=== PATIENT | male | born 1950 | race Caucasian/White ===

== ENCOUNTER → 2018-06-08 23:02 | Outpatient (CLI) | payer OTHER, MEDICARE, SELFPAY ==
[2018-06-08 19:31] VITALS: BMI 35.3
[2018-06-08 23:23] LABS: Absolute Lymphocyte Count 1.57 X10^3/ul (0.83-4.51); Absolute Neutrophil Count 3.8 X10^3/uL (2.0-7.7); Basophil# 0.04 X10^3/uL; Basophil% 0.6 % (0-1); Eosinophil# 0.24 X10^3/uL; Eosinophils% 3.9 % (0-5); Hematocrit 46.6 % (40-54); Hemoglobin 15.5 g/dl (13.0-16.5); Lymphocyte # 1.57 X10^3/ul (4.0); Lymphocyte % 25.4 % (19-41); Mean Corp Hgb Conc 33.3 g/gl (32-36); Mean Corpuscular Hgb 30.6 pg (27.0-32.0); Mean Corpuscular Volume 92.1 fL (80-94); Mean Platelet Vol. 11.3 fl (6.2-12.0); Monocyte# 0.52 X10^3/uL; Monocyte% 8.4 % (0-10); Neutrophil # 3.79 X10^3/uL (2.7-7.7); Neutrophil % 61.5 % (47-70); Platelet Count 258 K/mm3 (150-450); RBC Distribution Width CV 12.3 % (11.6-14.6); Red Blood Count 5.06 M/mm3 (4.6-6.2); White Blood Count 6.2 K/mm3 (4.4-11.0)
[2018-06-08 23:27] LABS: ALB/GLOB Ratio 1.3 RATIO (0.9-2.4); AST(SGOT) 21 U/L (15-37); Alanine Aminotransfer ALT/SGPT 32 U/L (16-61); Alkaline Phosphatase 105 U/L (45-117); Anion Gap 7 (5-15); BUN 16 mg/dL (7-18); BUN/Creat Ratio 12.4 RATIO (10-20); Calcium,Total 8.9 mg/dL (8.5-10.1); Chloride 104 mmol/L (98-107); Cholesterol 164 mg/dL (200); Creatinine, Serum 1.29 mg/dL (0.70-1.30); EST Glomerular Filtration Rate 59 mL/min (>60); Est Glom Filt Rate - Afr Amer 72 mL/min (>60); Glucose 82 mg/dL (74-106); High Density Lipoprotein 46 mg/dL; PSA,Total - Annual Screen 0.59 ng/mL (0.00-4.00); Potassium 3.9 mmol/L (3.5-5.1); Sodium Level 139 mmol/L (136-145); Triglycerides 138 mg/dL; Very Low Density Lipoprotein 28 mg/dL (5-40)
[2018-06-08 23:33] LABS: POSITIVE COUNT NO; POSITIVE DIFFERENTIAL NO; POSITIVE MORPHOLOGY NO
== END ==
PROVIDERS: Referring Provider Nurse Practitioner; Visit Provider Nurse Practitioner
DX: I10 Essential (primary) hypertension (principal); E78.5 Hyperlipidemia, unspecified; R35.0 Frequency of micturition
CPT/HCPCS: 80053; 80061; 84153; 85025; G0103

== ENCOUNTER 2019-02-27 12:58 | Inpatient (IN) | payer OTHER, MEDICARE, SELFPAY ==
[2018-06-08 19:31] VITALS: BMI 35.3
[2019-02-08 15:08] VITALS: BP 117/69; PULSE 76; RESP 16; TEMP 36.4; O2SAT 97; BMI 34.2
--- NOTE | 2019-02-08 15:21 | SDCEKG_ITS ---
Test Reason : Blood Pressure : / mmHG Vent. Rate : 079 BPM Atrial Rate : 079 BPM P-R Int : 262 ms QRS Dur : 080 ms QT Int : 358 ms P-R-T Axes : 060 089 042 degrees QTc Int : 410 ms Sinus rhythm with 1st degree A-V block with occasional Premature ventricular complexes Low voltage QRS Borderline ECG Confirmed by ESTELLA ADLER, RANDY ([id number]), loan expeditor MARIETTA NEIL ([id number]) on 02/13/2019 9:40:06 AM Referred By: Hudson Stanton Confirmed By:RANDY SORIA MD
[2019-02-08 16:00] LABS: AST(SGOT) 20 U/L (15-37); Alanine Aminotransfer ALT/SGPT 29 U/L (16-61); Alkaline Phosphatase 80 U/L (45-117); Anion Gap 8 (5-15); BUN 22 mg/dL (7-18); BUN/Creat Ratio 15.7 RATIO (10-20); Bilirubin, Direct 0.17 mg/dL (0.00-0.30); Calcium,Total 9.2 mg/dL (8.5-10.1); Chloride 104 mmol/L (98-107); EST Glomerular Filtration Rate 54 mL/min (>60); Est Glom Filt Rate - Afr Amer 65 mL/min (>60); Estimated Creatinine Clearance 57.86 ml/min; Globulin 3.1 g/dL (2.2-4.2); Glucose 97 mg/dL (74-106); Hematocrit 47.7 % (40-54); Mean Corp Hgb Conc 33.5 g/dL (32-36); Mean Corpuscular Hgb 30.5 pg (27.0-32.0); Platelet Count 292 K/mm3 (150-450); Potassium 4.1 mmol/L (3.5-5.1); Protein, Total 7.1 g/dL (6.4-8.2); RBC Distribution Width CV 11.9 % (11.6-14.6); RBC Distribution Width SD 39.6 fl (35.1-43.9); Red Blood Count 5.24 M/mm3 (4.6-6.2); Sodium Level 138 mmol/L (136-145); White Blood Count 7.5 K/mm3 (4.4-11.0)
[2019-02-27] VITALS (12 sets, daily range): BP systolic 92–127; BP diastolic 67–84; PULSE 73–86; RESP 16–18; TEMP 35.8–36.8; O2SAT 96–100; BMI 34.2; BMI 34.3
[2019-02-27 13:31] LABS: Bedside Glucose 98 mg/dL (70-110)
[2019-02-27] MEDS: Acetaminophen 500 MG Tablet 1000 MG PO ×2 (13:41→22:05)
[2019-02-27] MEDS: Scopolamine 1mg/72hr Patch 1 PATCH TRANSDERM. (13:42)
[2019-02-27] MEDS: Gabapentin 600 MG Tablet PO (13:43)
[2019-02-27] MEDS: Magnesium Sulfate 4gm/100mL 4 GM/100 ML IV.SOLN. IV (13:43)
[2019-02-27] MEDS: Lactated Ringers 1,000 ML 999 ML IV (13:45)
[2019-02-27] MEDS: Cefazolin 2 GM in 0.9% Normal Saline 100 ML IV (14:13)
[2019-02-27] MEDS: Lactated Ringers 1,000 ML 125 ML IV (14:20)
--- NOTE | 2019-02-27 15:00 | HIP_PTH ---
PATIENT: PK BURTON LOC: [facility]3 U#:[id number] AGE/SX: 68/M ROOM: MS313 RE02/27/[address]: Dr. Hudson Stanton MD : 1950 BED: 1 DIS: 02/28/2019 SPEC #: [id number] RECD: 02/28/19 11:51 STATUS: TOSHIA REQ #: [id number] CARROL: 02/27/19 15:[address]: Hudson Stanton DEPT: SURGICAL PATHOLOGY RECD BY: Sg Hilario ENTERED: 02/28/19 12:26 SP TYPE: TOTAL HIP OTHR DR: No Primary Care Phys Tissues: Hip, NOS Procedures: Decalcification bone/plaque Surgery Specimen Level IV HEADER OPERATION: ERAS, total hip replacement PRE-OP DIAGNOSIS: Unilateral primary osteoarthritis left hip TISSUE SUBMITTED: Left hip bone MICROSCOPIC DIAGNOSIS Left hip bone, total hip replacement/resection: Femoral head with degenerative osteoarthritic changes. Fragments of fibroadipose tissue, fibroconnective tissue and reactive synovial tissue. FREDDIE:shola 03/03/19 MICROSCOPIC DESCRIPTION Slides are reviewed. GROSS DESCRIPTION Received is one container labeled with the patient's name and designated bone and soft tissue hip, left. The specimen consists of a wen femoral head with portion of femoral neck. The femoral head measures 5.5 x 5.5 x 4.5 cm and the femoral neck measures 1 cm in length. The articular surface displays prominent osteophyte formation and bone erosion. Also present in the specimen container are multiple irregular fragments of bone reamings and pink-yellow soft tissue measuring in aggregate 10 x 9 x 3.5 cm. Timing Machine Operator sections are submitted in three cassettes as follows: 1 - soft tissue, 2 & 3 - bone after decalcification. / FREDDIE:shola 02/28/19 TC:5 CPT: 70786, 41261
--- NOTE | 2019-02-27 16:02 | PRO.PCM_ITS ---
Procedure Report Preoperative diagnosis: Left hip primary osteoarthritis Postoperative diagnosis: Same Operation: Left total hip replacement surgery Surgeon: Dr. Hudson Stanton MD Stave Log Cut Off Saw Operator: Elvi Ley PA-C Second licensed sales assistant Yo HODGES Anesthesia: Spinal Anesthesiologist Dr. Angela Special medications: IV [Ancef 2 gm], IV Tranexamic acid Indications for surgery : Patient is a [ 68]-year-old [male] with a long- standing history of [left] severe hip pain that has failed adequate nonoperative treatment. Due to persistent pain and disability, they decided to proceed with hip replacement surgery. Appropriate informed consent was obtained and signed. Appropriate medical workup was performed preoperatively and patient was deemed safe for surgery by the anesthesia department as well. assistant sales director, physician licensed sales assistant, was utilized throughout the entire procedure. They were vital in helping with patient positioning, holding of retractors, exposing the tissues adequately for safe completion of the procedure including cutting of the bone, helping district associate judge appropriate alignment and sizing of the components, implantation of the components, as well as wound closure, bandage application, and safe patient transfer. Without surgical scrub technician, physician licensed sales assistant, surgical time would have been significantly increased, and surgical outcome would have been less optimal. Operative findings: Patient had severe arthritis of the involved hip joint. They underwent a small posterior approach to the hip. We utilized a size [6 press-fit Accolade 2 stem] 127 degree neck angle, a press fit acetabular component size [58] Trident II titanium, X3 10? hooded polyethylene liner with a 36 mm inner diameter, a Biolox ceramic femoral head size [36] with a +7.5 neck length. This reproduced their anatomy nicely. Clinically good leg lengths were noted. Good hip stability through range of motion with no undue piston ing. Standard wound closure in layers, followed by becky, followed by Mepilex dressing Details of procedure: Patient was taken to the operating room and transferred to the operating table. Given appropriate anesthetic agent by that department. Patient was then rolled into a lateral decubitus position with the involved painful hip up in the air. Appropriate timeouts had been performed. Hip had been appropriately marked with my initials. Padded anterior and posterior position was utilized. Axillary roll placed. DAMION hose and SCDs on the nonoperative limb utilized throughout the procedure. Tranexamic acid and IV antibiotics given preoperatively. Operative lower extremity was prepped padded and draped in the usual orthopedic sterile fashion for the procedure. I injected the pain relieving solution in the standard sterile technique of the soft tissues of the hip carefully. Incision was made curving over the tip of the greater trochanter posteriorly. Full thickness skin flaps are raised down on the fascia merry. Fascia mrery was opened in length with our incision. Charnley self-retaining hip retractor was carefully placed by the surgeon. Leg was appropriately rotated and held by the licensed sales assistant. Retractor was used to lift the abductors anteriorly to visualize the piriformis tendon and external rotators. Area was infiltrated with pain relieving cocktail. Piriformis tendon and external rotators released off the greater trochanter with the Bovie. Tagging suture was placed in each of these separately. We then split the tissue superior to the piriformis tendon through capsule and onto the pelvis. Acetabular labrum was also divided. With traction and manipulation arthritic femoral head was dislocated from the acetabulum. Retractors were carefully placed around the femoral neck. Cutting guide was utilized to map out the proposed cut approximately 1 fingerbreadth above the lesser trochanter. This femoral neck cut was carried out with a saw. Arthritic femoral head removed and measured and inspected. Inferior acetabular retractor was placed by the surgeon, held by the licensed sales assistant. Bone hook utilized to pull the proximal femur anteriorly. Labrum removed from about the acetabulum a long knife. Tissue removed from the depth of the acetabulum with the Bovie. Arthritic acetabulum was noted. We began reaming with the appropriate sized reamer based on the measurement of the femoral head. Reaming was done with 45? of abduction, 20? of anteversion, reproducing there anatomy. Reaming was done incrementally up to the appropriate size creating a smooth cylindrical acetabulum and was done down to healthy bone. Trial acetabular component 1 millimeters smaller than the largest reamer was utilized with the outrigger device. Appropriate abduction an d anteversion confirmed as well as size and position of cup. We irrigated with bulb syringe saline. Appropriate acetabular opponent was opened and hammered into position with the outrigger device, with 45? of abduction and 20 degrees of anteversion. We could see through the hole in the cup it was adequately down onto the bone in the pelvis. Good stability was noted. Trial liner with a 10? prasad was appropriately positioned. Acetabular retractors removed. A proximal femoral elevator utilized. Held by the licensed sales assistant. We used a sharp awl entering down inside the bone of the proximal femur. Utilized the rachana cutting osteotome in the proximal lateral greater trochanteric region. The fragment removed. Broaching was then done from the smallest broach, upto the appropriate size. Good stability was confirmed. We then trialed the construct with a standard neck length and appropriate sized femoral head on 127? angle neck. We were happy with the construct. Good stability to flexion, rotation by the licensed sales assistant. At this point trials removed. I now placed the appropriate polyethylene acetabular liner into a clean dry previously placed shell. This was hammered into position. Suction device was used to confirm its stability. We now exposed the proximal femur with appropriate retractors in place, held by the licensed sales assistant, actual femoral stem was checked, opened, and then hammered into the proximal femur and seated down to a similar position as the trial had. We now again trialed appropriate neck length upon. It was then opened. Now impacted the appropriate sized femoral head, neck construct onto the clean dried trunion. Was noted to be stable. Hip was inspected, and joint was reduced for a final time. Good hip stability and leg lengths noted. This was then irrigated with saline and cleaned. Next the remainder of the pain relieving solution was injected carefully throughout the soft tissues of the hip joint. Closure was carried out with a combination of #1 Vicryl, running #2 strata fix in the fascia merry, followed by mid layer #1 Vicryl with #1 strata fix running. Next running 0 strata fix, followed by skin becky, Xeroform, Mepilex dressing. We placed DAMION hose and SCD on the operative leg. Patient awoken from the anesthetic and transferred back to room bed in recovery room in satisfactory condition. Patient will be admitted for pain management, PT, IV antibiotics, medication and for DVT prevention. Hopeful discharge to home in 1 days This note was generated with [employer] dictation software. It may contain incorrect words, spelling, and punctuation that were not noted in checking the note before signing.
--- NOTE | 2019-02-27 16:40 | RAD_ITS ---
STUDY: X-RAY - PELVIS AND LEFT HIP REASON FOR EXAM: Male, 68 years old. Postoperative TECHNIQUE: 2 views of the pelvis and hip. COMPARISON: None. Findings: Bilateral hip arthroplasties are placed, recent on the left. There is no evidence of complication. There is no radiopaque foreign body. RAD/Hip Min 2 Views (Portable) IMPRESSION: Postoperative hip arthroplasty as above. Electronically Signed: Gaurav Lyons, at 17:52 EST Tel , Service support ,
[2019-02-27] MEDS: Aspirin 81 MG TAB.CHEW PO (18:48)
[2019-02-27] MEDS: Cefazolin 1 GM/50 ML BAG IV (19:50)
[2019-02-27] MEDS: Atorvastatin Calcium 10 MG Tablet PO (22:05)
[2019-02-27] MEDS: Senna/Docusate Sodium 1 Tablet 2 TABLET PO (22:05)
[2019-02-28] MEDS: Lactated Ringers 1,000 ML 125 ML IV
[2019-02-28] MEDS: oxyCODONE 5 MG Tablet PO ×2 (00:04→04:46)
[2019-02-28] MEDS: Cefazolin 1 GM/50 ML BAG IV ×2 (01:57→07:55)
[2019-02-28 01:59] VITALS: BP 97/68; PULSE 72; RESP 16; TEMP 36.9; O2SAT 96
[2019-02-28] MEDS: Acetaminophen 500 MG Tablet 1000 MG PO (04:54)
[2019-02-28 05:04] VITALS: BP 115/71; PULSE 89; RESP 16; TEMP 36.4; O2SAT 95
[2019-02-28 06:34] LABS: Hematocrit 43.2 % (40-54); Hemoglobin 14.2 g/dL (13.0-16.5); Mean Corp Hgb Conc 32.9 g/dL (32-36); Mean Corpuscular Hgb 30.5 pg (27.0-32.0); Mean Corpuscular Volume 92.9 fL (80-94); Mean Platelet Vol. 11.1 fl (6.2-12.0); Platelet Count 295 K/mm3 (150-450); RBC Distribution Width SD 40.8 fl (35.1-43.9); Red Blood Count 4.65 M/mm3 (4.6-6.2); White Blood Count 16.9 K/mm3 (4.4-11.0)
[2019-02-28 07:10] LABS: Anion Gap 10 (5-15); BUN 16 mg/dL (7-18); BUN/Creat Ratio 10.4 RATIO (10-20); Calcium,Total 8.7 mg/dL (8.5-10.1); Chloride 99 mmol/L (98-107); Creatinine, Serum 1.54 mg/dL (0.70-1.30); EST Glomerular Filtration Rate 48 mL/min (>60); Est Glom Filt Rate - Afr Amer 58 mL/min (>60); Glucose 124 mg/dL (74-106); Sodium Level 135 mmol/L (136-145)
--- NOTE | 2019-02-28 07:18 | PN.ORTHO_ITS ---
Subjective: Patient has no complaints this morning. No adverse events overnight. Pain in the left hip has been very well controlled. His spinal was still active into the evening yesterday he was unable to stand with physical therapy due to spinal anesthesia. Does not have any significant pain at this time. Denies chest pain shortness of breath dizziness or calf pain. Denies cough. He would like to consider discharged home later today. Objective: Patient is alert and oriented x3. No acute distress at rest. Breathing easily without respiratory distress. Inspection of left hip reveals a Mepilex dressing with a couple spots of dry bloody drainage without erythema warmth or signs of infection. Negative Edith bilaterally without signs of DVT. Pedal pulses present and equal bilaterally. Sensation intact to light touch bilateral lower extremities. Patient is able to actively plantar and dorsiflex bilateral feet against resistance. Neurovascularly intact. Postoperative x-rays were reviewed and are consistent with a press-fit left total hip replacement prostheses in good position without evidence of hardware f ailure or loosening. - Physical Exam Vitals/I&O's: Vital Signs Temp Pulse Resp BP Pulse Ox 97.6 F L 89 16 115/71 95 02/28/19 05:04 02/28/19 05:04 02/28/19 05:04 02/28/19 05:04 02/28/19 05:04 Oxygen Flow Rate (L/min) 6 Oxygen Delivery Method Room Air Weight: 119.5 kg Body Mass Index (BMI) 34.2 Intake and Output for Last 24 Hours 02/26/19 02/27/19 02/28/19 23:59 23:59 23:59 Intake Total 2480.0 / 2480.0 1241.67 / 1241.67 Output Total 1300 / 1300 Balance 2480.0 / 2480.0 -58.33 / -58.33 Laboratory Results 02/27/19 13:25: POC Glucose 98 02/28/19 06:06: WBC 16.9 H, RBC 4.65, Hgb 14.2, Hct 43.2, MCV 92.9, MCH 30.5, MCHC 32.9, RDW Std Deviation 40.8, RDW Coeff of Remigio 12.0, Plt Count 295, MPV 11.1 02/28/19 06:06: Sodium 135 L, Potassium 4.0, Chloride 99, Carbon Dioxide 26.0, Anion Gap 10, BUN 16, Creatinine 1.54 H, Estim Creat Clear Calc 52.60, Est GFR (MDRD) Af Amer 58 L, Est GFR (MDRD) Non-Af 48 L, BUN/Creatinine Ratio 10.4, Gl ucose 124 H, Calcium 8.7 Current Medications Acetaminophen (Tylenol) 1,000 mg PO Q8 [facility] Last Admin: 02/28/19 04:54 Dose: 1,000 mg Documented by: [facility], [facility]) [facility] Last Admin: 02/27/19 18:48 Dose: 81 mg Documented by: Atorvastatin Calcium (Lipitor) 10 mg PO QHS [facility] Last Admin: 02/27/19 22:05 Dose: 10 mg Documented by: Hydrochlorothiazide () 12.5 mg PO DAILY [facility] Lactated Ringer's () 1,000 mls @ 125 mls/hr IV .Q8H [facility] Last Infusion: 02/28/19 05:04 Dose: 15 mls/hr Documented by: Cefazolin Sodium () 1 gm in 50 mls @ 150 mls/hr IV Q6H [facility] Stop: 02/28/19 08:19 Last Infusion: 02/28/19 02:17 Dose: Infused Documented by: Sodium Chloride () 250 mls @ 15 mls/hr IV .[id number] PRN PRN Reason: Saline Flush Lisinopril (Zestril) 20 mg PO DAILY [facility] Loratadine (Claritin) 10 mg PO DAILY [facility] Ondansetron HCl (Zofran) 4 mg IV Q8H PRN PRN PRN Reason: NAUSEA Oxycodone HCl (Oxyir) 5 - 10 mg PO Q4H PRN PRN PRN Reason: Pain Score 4-10/10 Last Admin: 02/28/19 04:46 Dose: 10 mg Documented by: Senna/Docusate Sodium (Senokot-S, Mary-Colace) 2 tablet PO BID [facility] Last Admin: 02/27/19 22:05 Dose: 2 tablet Documented by: Sodium Chloride () 10 - 40 ml IV UD PRN PRN Reason: SALINE FLUSH Medical Necessity - Tobacco Use Smoking Status: Former smoker Tobacco Use: Non-smoker Assessment/Plan All Active Problems (Last Updated 06/08/18 @ 19:52 by Jaquelin Juarez, BENCH HAND-C) Hyperlipidemia LDL goal <130 (Acute) Cough (Acute) Maxillary sinusitis (Acute) 1. Status post left total hip replacement postop day #1 2. Continue OxyIR and Tylenol for pain control 3. DVT prophylaxis bilateral teds SCDs and baby aspirin twice daily for 1 month postoperative 4. Leukocytosis afebrile without acute signs of infection likely resulting from Decadron versus acute stress response anticipate resolution over the next couple days. Basic metabolic profile results are still pending will review upon posting. 5. Encourage incentive spirometry 6. Continue discharge planning with case management 7. Patient is orthopedically stable and okay for discharge to home today if he is having adequate pain control doing well with physical therapy. We will see him in the office in 1 week for reassessment of left hip with x-rays and staple removal.
--- NOTE | 2019-02-28 07:34 | PCM.DC.THR ---
Discharge Diet: No Restrictions Discharge Activity: May Not Drive - while taking narcotic pain medications., May not drive while taking narcotic pain medications., Use Walker May shower in (days): 2 - only if incision is dry and without drainage. Do NOT soak/submerge in tub/pool/clifton/stream/hot tub. Ice area for (Minutes): 20 - every hour as needed Weight Bearing Status: Weight bearing as tolerated Elevate: Operative Extremity Additional Activity Instructions:: Wear elastic stockings for 2 weeks. DO NOT use alcohol with narcotic pain medication. DO NOT make important decisions while taking narcotic medication. If you have problems with taking your medication (rash, itching, nausea, etc.) call the office at once. HIP DISLOCATION PRECAUTIONS Call your doctor if your incision/area has: Sudden Increased Bleeding, Increased Pain/ Swelling, Increased Redness, Foul Smelling Discharge Call your doctor if you observe: Fever of 101 or Higher, Coldness, Increased Pain, Numbness or Tingling, Shortness of breath, Dizziness, Chest pain, Calf discomfort, Uncontrolled pain Cleanse incision/area with: Soap & Water Additional Instructions: SEE POST OPERATIVE PINK SHEET Allergies/Adverse Reactions: Allergies pseudoephedrine Allergy (Verified 02/27/19 13:33) Other FAST HEART RATE AND RASH Medications to take at Discharge Multivitamin [Daily Multiple Vitamin] 1 each PO DAILY 03/01/15 cetirizine 10 mg capsule 10 mg PO DAILY cap 06/08/18 Lisinopril/Hydrochlorothiazide [Zestoretic 20/12.5 Tablet] 1 tab PO DAILY 02/08/19 Lovastatin [Mevacor] 40 mg PO QHS 02/08/19 Acetaminophen [Tylenol] 1,000 mg PO Q8 #60 tab 02/28/19 Aspirin [Aspirin, Baby] 81 mg PO BIDCM #60 tab.chew 02/28/19 Oxycodone [Oxyir] 5 - 10 mg PO Q4H PRN PRN 7 Days #56 tab 02/28/19 Senna/Docusate Sodium [Senokot-S] 2 tab PO BID #30 tab 02/28/19 The following prescriptions were given: Aspirin [Aspirin, Baby] 81 mg PO BIDCM #60 tab.chew Transmission Status: Sent to [facility] Oxycodone [Oxyir] 5 - 10 mg PO Q4H PRN PRN 7 Days #56 tab PRN Reason: Pain Score 4-10/10 Prescription Printed Senna/Docusate Sodium [Senokot-S] 2 tab PO BID #30 tab Transmission Status: Pending to [facility] Acetaminophen [Tylenol] 1,000 mg PO Q8 #60 tab Transmission Status: Pending to [facility] Primary Care Physician: Care Physician,No Primary [Primary Care Provider] - Test Results: Test results from this visit will be discussed in further detail at your follow-up appointment, if applicable. Proposed Discharge Date: 02/28/19
[2019-02-28] MEDS: Aspirin 81 MG TAB.CHEW PO (07:55)
--- NOTE | 2019-02-28 10:15 | CASEMGMT ---
MONICA VASQUEZ Face to Face with patient for initial transition planning/care coordination assessment. RN CHRISTINA introduced self and role at [facility]. Patient sitting in chair, alert and oriented. Patient willing to participate in assessment and is able to answer all questions appropriately. Care providers, pharmacy, and demographics verified. Patient wishes to discharge home and is setup with [facility] in [place] for outpatient therapy for Wednesday. Patient states he has no further needs or concerns at this time. CM to follow for discharge planning needs that may arise. PCP: Larry Specialists: [facility] Pharmacy: [facility] Insurance: [facility] Prescription Benefit: yes Living Will/HPOA: yes, jase Maciel LNOK: , son, granddaughter Living Arrangements: Patient lives with , son, and granddaughter in a one story home. Has steps and double railing to enter the home. Transportation: , sister DME/HHC: Patient has shower chair, raised toilet, hip kit, walker, rollator at home. Patient is setup with outpatient therapy at [facility] to begin Wednesday. Disposition Plan: Patient to discharge home with outpatient therapy, family support, and follow-up plans in place. Hien ASKEW, RN, CM
[2019-02-28 10:18] VITALS: BP 117/72; PULSE 93; RESP 18; TEMP 36.4; O2SAT 97
[2019-02-28] MEDS: Senna/Docusate Sodium 1 Tablet 2 TABLET PO (10:23)
[2019-02-28] MEDS: Lisinopril 20 MG Tablet PO (10:23)
[2019-02-28] MEDS: hydroCHLOROthiazide 12.5mg 12.5 MG PO (10:23)
[2019-02-28] MEDS: Loratadine 10 MG Tablet PO (10:23)
== END 2019-02-28 14:37 | disposition home or self-care (01) | DRG 470 ==
LOC: ACINP 13:00 → MS3 02-28 09:51
PROVIDERS: Anesthesiology; Admitting Provider Orthopaedic Surgery; Referring Provider Orthopaedic Surgery; Visit Provider Orthopaedic Surgery
PROC: 0SRB0JZ Replacement of Left Hip Joint with Synthetic Substitute, Open Approach (ICD-10-PCS; CPT 27130; principal; 2019-02-27 14:35)
DX: M16.12 Unilateral primary osteoarthritis, left hip (principal); I10 Essential (primary) hypertension; E66.9 Obesity, unspecified; Z68.33 Body mass index [BMI] 33.0-33.9, adult; Z87.891 Personal history of nicotine dependence
CPT/HCPCS: 36415; 73502; 80048; 80076; 82962; 85027; 87077; 87081; 88305; 88311; 93005; 97110; 97162; 97166; 97530; C1776; J7120

== ENCOUNTER → 2020-05-07 | Outpatient (CLI) | payer OTHER, MEDICARE, SELFPAY ==
[2020-05-07 18:10] VITALS: BMI 34.8
[2020-05-07 22:12] LABS: Absolute Lymphocyte Count 1.58 X10^3/uL (0.83-4.51); Basophil# 0.04 X10^3/uL; Basophil% 0.6 % (0-1); Eosinophil# 0.23 X10^3/uL; Eosinophils% 3.6 % (0-5); Hemoglobin 15.8 g/dL (13.0-16.5); Lymphocyte # 1.58 X10^3/ul (4.0); Lymphocyte % 24.7 % (19-41); Mean Corp Hgb Conc 32.2 g/dL (32-36); Mean Corpuscular Hgb 29.7 pg (27.0-32.0); Mean Corpuscular Volume 92.1 fL (80-94); Mean Platelet Vol. 11.2 fl (6.2-12.0); Monocyte# 0.51 X10^3/uL; NRBC Flagged by Analyzer 0 % (0-5); Neutrophil # 4.02 X10^3/uL (2.7-7.7); Neutrophil % 62.8 % (47-70); Platelet Count 298 K/mm3 (150-450); RBC Distribution Width CV 12.7 % (11.6-14.6); RBC Distribution Width SD 43.5 fl (35.1-43.9); Red Blood Count 5.32 M/mm3 (4.6-6.2); White Blood Count 6.4 K/mm3 (4.4-11.0)
[2020-05-07 22:24] LABS: ALB/GLOB Ratio 1.2 RATIO (0.9-2.4); AST(SGOT) 20 U/L (15-37); Alanine Aminotransfer ALT/SGPT 31 U/L (16-61); Alkaline Phosphatase 90 U/L (45-117); Anion Gap 6 (5-15); BUN 20 mg/dL (7-18); BUN/Creat Ratio 14.1 RATIO (10-20); Calcium,Total 9.1 mg/dL (8.5-10.1); Chloride 106 mmol/L (98-107); Cholesterol 206 mg/dL (200); Creatinine, Serum 1.42 mg/dL (0.70-1.30); EST Glomerular Filtration Rate 53 mL/min (>60); Est Glom Filt Rate - Afr Amer 64 mL/min (>60); Globulin 3.2 g/dL (2.2-4.2); Glucose 80 mg/dL (74-106); High Density Lipoprotein 51 mg/dL; PSA,Total - Annual Screen 0.81 ng/mL (0.00-4.00); Protein, Total 7.2 g/dL (6.4-8.2); Sodium Level 140 mmol/L (136-145); Triglycerides 225 mg/dL; Very Low Density Lipoprotein 45 mg/dL (5-40)
== END | disposition home or self-care (01) ==
PROVIDERS: Referring Provider Nurse Practitioner; Visit Provider Nurse Practitioner
DX: E78.5 Hyperlipidemia, unspecified (principal); I10 Essential (primary) hypertension; R35.0 Frequency of micturition
CPT/HCPCS: 80053; 80061; 84153; 85025; G0103

== ENCOUNTER 2021-06-03 22:30 | Outpatient (CLI) | payer OTHER, MEDICARE, SELFPAY ==
[2021-06-03 22:56] LABS: Absolute Lymphocyte Count 1.63 X10^3/uL (0.83-4.51); Absolute Neutrophil Count 4.6 X10^3/uL (2.0-7.7); Basophil# 0.06 X10^3/uL; Basophil% 0.8 % (0-1); Eosinophil# 0.23 X10^3/uL; Eosinophils% 3.2 % (0-5); Hematocrit 47.8 % (40-54); Hemoglobin 15.8 g/dL (13.0-16.5); Lymphocyte # 1.63 X10^3/ul (0.83-4.51); Lymphocyte % 22.8 % (19-41); Mean Corp Hgb Conc 33.1 g/dL (32-36); Mean Corpuscular Hgb 30.1 pg (27.0-32.0); Mean Platelet Vol. 10.9 fl (6.2-12.0); Monocyte# 0.58 X10^3/uL; Monocyte% 8.1 % (0-10); NRBC Flagged by Analyzer 0 % (0-5); Neutrophil # 4.64 X10^3/uL (2.7-7.7); Neutrophil % 64.8 % (47-70); Platelet Count 294 K/mm3 (150-450); RBC Distribution Width CV 12.1 % (11.6-14.6); RBC Distribution Width SD 40.1 fl (35.1-43.9); Red Blood Count 5.25 M/mm3 (4.6-6.2); White Blood Count 7.2 K/mm3 (4.4-11.0)
[2021-06-03 23:29] LABS: ALB/GLOB Ratio 1.3 RATIO (0.9-2.4); AST(SGOT) 20 U/L (15-37); Alanine Aminotransfer ALT/SGPT 32 U/L (16-61); Alkaline Phosphatase 86 U/L (45-117); Anion Gap 6 (5-15); BUN 23 mg/dL (7-18); BUN/Creat Ratio 15.2 RATIO (10-20); Calcium,Total 9.5 mg/dL (8.5-10.1); Chloride 104 mmol/L (98-107); Cholesterol 227 mg/dL (200); Creatinine, Serum 1.51 mg/dL (0.70-1.30); EST Glomerular Filtration Rate 49 mL/min (>60); Est Glom Filt Rate - Afr Amer 59 mL/min (>60); Glucose 108 mg/dL (74-106); High Density Lipoprotein 50 mg/dL; Potassium 4.1 mmol/L (3.5-5.1); Sodium Level 137 mmol/L (136-145); Triglycerides 227 mg/dL; Very Low Density Lipoprotein 45 mg/dL (5-40)
== END 2021-06-03 23:59 | disposition home or self-care (01) ==
PROVIDERS: Visit Provider Nurse Practitioner
DX: I10 Essential (primary) hypertension (principal); E78.5 Hyperlipidemia, unspecified; R35.0 Frequency of micturition
CPT/HCPCS: 80053; 80061; 84153; 85025; G0103

== ENCOUNTER → 2022-06-10 | Outpatient (CLI) | payer OTHER, MEDICARE, SELFPAY ==
[2022-06-10 22:23] LABS: Absolute Lymphocyte Count 1.27 X10^3/uL (0.83-4.51); Absolute Neutrophil Count 2.4 X10^3/uL (2.0-7.7); Basophil# 0.06 X10^3/uL; Basophil% 1.2 % (0-1); Eosinophil# 0.35 X10^3/uL; Eosinophils% 7.2 % (0-5); Hematocrit 47.5 % (40-54); Hemoglobin 15.8 g/dL (13.0-16.5); Lymphocyte # 1.27 X10^3/ul (0.83-4.51); Mean Corp Hgb Conc 33.3 g/dL (32-36); Mean Corpuscular Hgb 30.4 pg (27.0-32.0); Mean Corpuscular Volume 91.5 fL (80-94); Mean Platelet Vol. 11.1 fl (6.2-12.0); Monocyte# 0.77 X10^3/uL; Monocyte% 15.8 % (0-10); NRBC Flagged by Analyzer 0 % (0-5); Neutrophil # 2.41 X10^3/uL (2.7-7.7); Neutrophil % 49.4 % (47-70); Platelet Count 247 K/mm3 (150-450); RBC Distribution Width CV 12.8 % (11.6-14.6); RBC Distribution Width SD 42.8 fl (35.1-43.9); Red Blood Count 5.19 M/mm3 (4.6-6.2); White Blood Count 4.9 K/mm3 (4.4-11.0)
[2022-06-10 22:38] LABS: ALB/GLOB Ratio 1.3 RATIO (0.9-2.4); AST(SGOT) 21 U/L (15-37); Alanine Aminotransfer ALT/SGPT 25 U/L (16-61); Albumin, Serum 3.9 g/dL (3.2-5.0); Alkaline Phosphatase 93 U/L (45-117); Anion Gap 7 (5-15); BUN 15 mg/dL (7-18); BUN/Creat Ratio 10.5 RATIO (10-20); Calcium,Total 9.3 mg/dL (8.5-10.1); Chloride 107 mmol/L (98-107); Cholesterol 179 mg/dL (200); Creatinine, Serum 1.43 mg/dL (0.70-1.30); EST Glomerular Filtration Rate 52 mL/min (>60); Est Glom Filt Rate - Afr Amer 63 mL/min (>60); Globulin 3.1 g/dL (2.2-4.2); Glucose 106 mg/dL (74-106); High Density Lipoprotein 46 mg/dL; Potassium 4.7 mmol/L (3.5-5.1); Sodium Level 143 mmol/L (136-145); Triglycerides 194 mg/dL; Very Low Density Lipoprotein 39 mg/dL (5-40)
[2022-06-11 15:05] LABS: CRP, High Sensitivity Cardiac 6.96 mg/L
== END | disposition home or self-care (01) ==
PROVIDERS: Visit Provider Nurse Practitioner
DX: I10 Essential (primary) hypertension (principal); E78.5 Hyperlipidemia, unspecified; Z12.5 Encounter for screening for malignant neoplasm of prostate
CPT/HCPCS: 80053; 80061; 84153; 85025; 86141; G0103

== ENCOUNTER 2023-07-21 22:44 | Outpatient (CLI) | payer MEDICARE, OTHER, SELFPAY ==
[2023-07-21 23:21] LABS: Absolute Lymphocyte Count 1.23 X10^3/uL (0.83-4.51); Absolute Neutrophil Count 3.7 X10^3/uL (2.0-7.7); Basophil# 0.05 X10^3/uL; Basophil% 0.9 % (0-1); Eosinophil# 0.21 X10^3/uL; Eosinophils% 3.7 % (0-5); Hematocrit 48.5 % (40-54); Hemoglobin 15.7 g/dL (13.0-16.5); Lymphocyte # 1.23 X10^3/ul (0.83-4.51); Lymphocyte % 21.4 % (19-41); Mean Corp Hgb Conc 32.4 g/dL (32-36); Mean Corpuscular Volume 92.6 fL (80-94); Mean Platelet Vol. 11.2 fl (6.2-12.0); Monocyte# 0.52 X10^3/uL; NRBC Flagged by Analyzer 0 % (0-5); Neutrophil # 3.72 X10^3/uL (2.7-7.7); Neutrophil % 64.7 % (47-70); Platelet Count 294 K/mm3 (150-450); RBC Distribution Width CV 12.1 % (11.6-14.6); RBC Distribution Width SD 41.1 fl (35.1-43.9); Red Blood Count 5.24 M/mm3 (4.6-6.2); White Blood Count 5.8 K/mm3 (4.4-11.0)
[2023-07-21 23:43] LABS: ALB/GLOB Ratio 1.3 RATIO (0.9-2.4); AST(SGOT) 19 U/L (15-37); Alanine Aminotransfer ALT/SGPT 23 U/L (16-61); Albumin, Serum 3.9 g/dL (3.2-5.0); Alkaline Phosphatase 79 U/L (45-117); Anion Gap 2 (5-15); BUN 21 mg/dL (7-18); BUN/Creat Ratio 17.4 RATIO (10-20); Calcium,Total 8.8 mg/dL (8.5-10.1); Chloride 106 mmol/L (98-107); Cholesterol 190 mg/dL (200); Creatinine, Serum 1.21 mg/dL (0.70-1.30); EST Glomerular Filtration Rate 63 mL/min (>60); Est Glom Filt Rate - Afr Amer 76 mL/min (>60); Globulin 2.9 g/dL (2.2-4.2); Glucose 89 mg/dL (74-106); High Density Lipoprotein 43 mg/dL; PSA,Total - Annual Screen 0.72 ng/mL (0.00-4.00); Potassium 4.2 mmol/L (3.5-5.1); Protein, Total 6.8 g/dL (6.4-8.2); Sodium Level 136 mmol/L (136-145); Triglycerides 218 mg/dL; Very Low Density Lipoprotein 44 mg/dL (5-40)
== END 2023-07-21 23:59 | disposition home or self-care (01) ==
PROVIDERS: PCP Nurse Practitioner; Visit Provider Nurse Practitioner
DX: Z12.5 Encounter for screening for malignant neoplasm of prostate (principal); I10 Essential (primary) hypertension; E78.5 Hyperlipidemia, unspecified; R35.0 Frequency of micturition
CPT/HCPCS: 80053; 80061; 84153; 85025; G0103

== ENCOUNTER → 2024-10-12 | Outpatient (CLI) | payer MEDICARE, OTHER, SELFPAY ==
[2024-10-12 22:39] LABS: Hematocrit 50.0 % (40-54); Hemoglobin 16.2 g/dL (13.0-16.5); Immature Granulocytes Count 0.020 X10^3/uL (0.0-0.0); Mean Corp Hgb Conc 32.4 g/dL (32-36); Mean Corpuscular Volume 92.4 fL (80-94); Mean Platelet Vol. 10.9 fl (6.2-12.0); NRBC Flagged by Analyzer 0 % (0-5); Platelet Count 303 K/mm3 (150-450); RBC Distribution Width CV 12.2 % (11.6-14.6); RBC Distribution Width SD 41.5 fl (35.1-43.9); Red Blood Count 5.41 M/mm3 (4.6-6.2); White Blood Count 6.7 K/mm3 (4.4-11.0)
[2024-10-12 23:09] LABS: AST(SGOT) 24 U/L (<=37); Alanine Aminotransfer ALT/SGPT 19 U/L (<=46); Albumin, Serum 4.6 g/dL (3.4-4.8); Alkaline Phosphatase 88 U/L (40-129); Anion Gap 10 (5-15); BUN 17 mg/dL (4-19); BUN/Creat Ratio 13.1 RATIO (10-20); Calcium,Total 9.8 mg/dL (7.6-11.0); Carbon Dioxide 25.1 mmol/L (21.0-32.0); Chloride 102 mmol/L (98-108); Cholesterol 197 mg/dL (<=200); Globulin 2.5 g/dL (2.2-4.2); Glucose 102 mg/dL (70-99); Low Density Lipoprotein Calc. 113 mg/dL; PSA,Total - Annual Screen 0.61 ng/mL (0.02-4.00); Potassium 4.5 mmol/L (3.3-5.1); Triglycerides 148 mg/dL; Very Low Density Lipoprotein 30 mg/dL (5-40); cholesterol:hdl ratio screen 3.63
== END | disposition home or self-care (01) ==
PROVIDERS: PCP Nurse Practitioner; Visit Provider Nurse Practitioner
DX: Z12.5 Encounter for screening for malignant neoplasm of prostate (principal); R35.0 Frequency of micturition; E78.5 Hyperlipidemia, unspecified; I10 Essential (primary) hypertension
CPT/HCPCS: 80053; 80061; 84153; 85025; G0103